=== PATIENT | female | born 1955 | race American Indian/Alaskan Native ===

== ENCOUNTER 2017-03-15 12:18 | Outpatient (CLI) | payer MEDICARE ==
--- NOTE | 2017-03-15 13:02 | XRay Report ---
XRAY RIGHT SHOULDER THREE VIEWS: 03/15/17 12:18:00 CLINICAL: Right shoulder pain. FINDINGS: Normal glenohumeral alignment and normal glenohumeral joint. Normal AC joint. No fracture or dislocation. A small subacromial osteophyte and cortical irregularity at the greater tuberosity of the humerus. Normal soft tissues. IMPRESSION: Cortical irregularity at the greater tuberosity of the humerus and a subacromial osteophyte suggesting possible rotator cuff disease.
== END 2017-03-15 12:19 | disposition home or self-care (01) ==
LOC: SPVIMAG 12:18
PROVIDERS: ATTEND Orthopaedic Surgery
DX: M25.711 Osteophyte, right shoulder (principal)

== ENCOUNTER 2017-03-25 13:11 | Outpatient (CLI) | payer MEDICARE, OTHER ==
--- NOTE | 2017-03-25 18:15 | XRay Report ---
FINAL REPORT EXAM: XR SPINE LUMBOSACRAL 2-3V HISTORY: LOW BACK ACHE TECHNIQUE: AP, lateral and coned-down views of the lumbar spine PRIORS: None. FINDINGS: The vertebral body heights are well maintained. There is moderate narrowing of the L4-L5 disc space. The alignment is normal. No evidence for spondylolysis or spondylolisthesis is seen. Pedicles are intact bilaterally at all levels. The paraspinal soft tissues are unremarkable. IMPRESSION: Moderate narrowing of the L4-L5 disc space.
--- NOTE | 2017-03-25 18:17 | XRay Report ---
FINAL REPORT EXAM: XR SPINE CERVICAL 2-3V HISTORY: NECK PAIN TECHNIQUE: AP, lateral, and odontoid views of the cervical spine PRIORS: None. FINDINGS: The vertebral body heights and disc spaces are well maintained. The alignment is normal. No prevertebral soft tissue swelling is seen. The odontoid is intact. IMPRESSION: Normal cervical spine.
== END 2017-03-25 13:12 | disposition home or self-care (01) ==
LOC: SPVIMAG 13:11
PROVIDERS: ATTEND Physical Medicine & Rehabilitation
DX: M54.2 Cervicalgia (principal); M54.5 Low back pain
CPT/HCPCS: 72040; 72100